=== PATIENT | female | born 1940 | race Two or more races ===

== ENCOUNTER → 2018-02-10 | Outpatient (CLI) | payer OTHER | END | disposition home or self-care (01) | LOC: MAMO-SONO 11:15 → SONOGRAMA 11:29 | DX: M25.462 Effusion, left knee (principal) ==

== ENCOUNTER 2019-01-12 07:18 | Outpatient (CLI) | payer OTHER | END 2019-01-12 07:19 | disposition home or self-care (01) | LOC: NUCLEAR 07:18 | DX: I48.0 Paroxysmal atrial fibrillation (principal); I11.9 Hypertensive heart disease without heart failure; I25.10 Atherosclerotic heart disease of native coronary artery without angina pectoris | CPT/HCPCS: 78452; 93017; A9500; J0153 ==

== ENCOUNTER 2020-12-02 13:06 | Emergency (ER) | payer OTHER ==
[~2020-12-02] VITALS: Ht 175.3 cm; Wt 93.0 kg
[2020-12-02] MEDS ORDERED: ORPHENADRINE C100 MG PO (15:57)
[2020-12-02] MEDS ORDERED: SKELAGESIC PO (15:57)
== END 2020-12-02 16:03 | disposition home or self-care (01) ==
LOC: ER 13:06
DX: S00.03XA Contusion of scalp, initial encounter (principal); S50.11XA Contusion of right forearm, initial encounter; M54.2 Cervicalgia; R06.02 Shortness of breath; W01.198A Fall on same level from slipping, tripping and stumbling with subsequent striking against other object, initial encounter; Y93.01 Activity, walking, marching and hiking; Y92.63 Factory as the place of occurrence of the external cause; Y99.8 Other external cause status; Z99.81 Dependence on supplemental oxygen

== ENCOUNTER 2021-01-19 10:33 | Outpatient (CLI) | payer OTHER ==
[~2021-01-19 10:33] MED LIST: ORPHENADRINE C100 MG PO; SKELAGESIC PO
== END 2021-01-19 10:42 | disposition home or self-care (01) ==
LOC: MRI 10:33
PROVIDERS: ATTEND Physical Medicine & Rehabilitation
DX: M48.02 Spinal stenosis, cervical region (principal); R26.89 Other abnormalities of gait and mobility; M50.823 Other cervical disc disorders at C6-C7 level
CPT/HCPCS: 72141

== ENCOUNTER 2022-02-26 10:20 | Outpatient (CLI) | payer OTHER ==
[~2022-02-26 10:20] MED LIST changes: +ATORVASTATIN CA20 MG; +DIOVAN40 MG; +FARXIGA10 MG; +METFORMIN HCL1000 MG
== END 2022-02-26 10:28 | disposition home or self-care (01) ==
LOC: SONOGRAMA 10:20
PROVIDERS: ATTEND Urology
DX: N28.1 Cyst of kidney, acquired (principal)

== ENCOUNTER 2022-03-12 09:04 | Outpatient (CLI) | payer OTHER | END 2022-03-12 09:13 | disposition home or self-care (01) | LOC: RAD 09:04 | PROVIDERS: ATTEND Physical Medicine & Rehabilitation | DX: S86.312A Strain of muscle(s) and tendon(s) of peroneal muscle group at lower leg level, left leg, initial encounter (principal); M79.662 Pain in left lower leg ==

== ENCOUNTER 2022-03-15 08:26 | Outpatient (CLI) | payer OTHER | END 2022-03-15 08:27 | disposition home or self-care (01) | LOC: NUCLEAR 08:26 | PROVIDERS: ATTEND Physical Medicine & Rehabilitation | DX: I82.402 Acute embolism and thrombosis of unspecified deep veins of left lower extremity (principal); Z88.0 Allergy status to penicillin; Z88.2 Allergy status to sulfonamides; Z88.6 Allergy status to analgesic agent ==